=== PATIENT | male | born 1995 | race Caucasian/White ===

== ENCOUNTER 2018-10-02 09:47 | Emergency (ER) | payer OTHER ==
[~2018-10-02] VITALS: Ht 177.8 cm; Wt 92.5 kg
[2018-10-02 09:53] VITALS: BP 134/66
--- NOTE | 2018-10-02 10:10 | NUR ---
C/O ABCESS ON LT SIDE OF HEAD X1 MONTH. PT REPORTS PAIN AT 1/10 THAT INCREASES WITH WEARING HELMET. - N/V/D. PT RECEIVED ABX FROM PCP, WAS TOLD TO GO TO URGENT CARE TO DRAIN ABCESS, BUT PT STATES LINE WAS TO LONG. . DENIES N/V/D; SKIN IS PINK/WARM/DRY; AAOX4 WITH EVEN AND STEADY GAIT; LUNGS CLEAR BL; HR EVEN AND REGULAR; PT DENIES ANY FEVER, CP, SOB, OR COUGH AT THIS TIME; PATIENT STATES PAIN OF 1/10 AT THIS TIME; VSS; PATIENT POSITIONED FOR COMFORT; HOB ELEVATED; BEDRAILS UP X2; BED DOWN. ER MD MADE AWARE OF PT STATUS.
[2018-10-02] MEDS ORDERED: LIDOCAINE 1% 500 MG/50 ML VIAL INJ SCH (11:05)
[2018-10-02] MEDS ORDERED: LIDOCAINE MPF 1% 5mL VIAL ONE (11:28)
[2018-10-02 12:12] VITALS: BP 134/66
--- NOTE | 2018-10-02 12:12 | NUR ---
Patient discharged with v/s stable. Written and verbal after care instructions given and explained. Patient verbalized understanding. Ambulatory with steady gait. All questions addressed prior to discharge. Advised to follow up with PMD.
[2018-10-02] MEDS ORDERED: BACITRACIN OINT 500 UNITS/GM PKT TP ONE (12:16)
== END 2018-10-02 12:12 | disposition home or self-care (01) ==
LOC: MED 09:47
DX: L72.3 Sebaceous cyst (principal); R03.0 Elevated blood-pressure reading, without diagnosis of hypertension
CPT/HCPCS: 10060; 99283; J2001

== ENCOUNTER 2024-01-29 12:58 | Emergency (ER) | payer OTHER ==
[~2024-01-29] VITALS: Ht 177.8 cm; Wt 127.0 kg
[2024-01-29 13:02] VITALS: BP 143/84; PULSE 72; RESP 18; TEMP 98.2; O2SAT 97
[2024-01-29 13:39] LABS: BASOPHILS # (AUTO) 0.1 K/uL (0.00-0.22); BASOPHILS % (AUTO) 0.6 % (0.0-2.0); EOSINOPHILS # (AUTO) 0.3 K/uL (0-0.4); EOSINOPHILS % (AUTO) 2.3 % (0.0-4.0); HEMATOCRIT 48.1 % (36-52); HEMOGLOBIN 16.2 g/dL (12.0-18.0); LYMPHOCYTES # (AUTO) 2.8 K/uL (2.0-11.5); LYMPHOCYTES % (AUTO) 25.1 % (20.5-51.1); MEAN CORPUSCULAR HEMOGLOBIN 30 pg (27-31); MEAN CORPUSCULAR HGB CONC 34 g/dL (33-37); MEAN CORPUSCULAR VOLUME 87.5 fL (80-94); MONOCYTES # (AUTO) 0.7 K/uL (0.8-1.0); MONOCYTES % (AUTO) 6.1 % (1.7-9.3); NEUTROPHILS # (AUTO) 7.5 K/uL (1.8-7.7); NEUTROPHILS % (AUTO) 65.9 % (42.2-75.2); PLATELET COUNT (AUTO) 235 K/uL (140-450); RED BLOOD CELL COUNT(AUTO) 5.49 MIL/uL (4.20-6.10); WHITE BLOOD COUNT (AUTO) 11.3 K/uL (4.8-10.8)
[2024-01-29] MEDS: IBUPROFEN 800 MG TAB PO ONE (13:47)
[2024-01-29] MEDS: METOCLOPRAMIDE 10 MG TAB PO ONE (13:48)
[2024-01-29 13:55] LABS: ALBUMIN 4.2 g/dL (3.4-5.0); ANION GAP 12.4 (8-16); CALCIUM 9.5 mg/dL (8.5-10.1); CARBON DIOXIDE 27.3 mmol/L (21-32); POTASSIUM 3.7 mmol/L (3.5-5.1); TOTAL BILIRUBIN 0.6 mg/dL (0.0-1.0)
[2024-01-29] MEDS ORDERED: ONDA-188 PO (14:15)
== END 2024-01-29 14:22 | disposition home or self-care (01) ==
LOC: MED 12:58
DX: R51.9 Headache, unspecified (principal); R42 Dizziness and giddiness; R03.0 Elevated blood-pressure reading, without diagnosis of hypertension; Z20.822 Contact with and (suspected) exposure to COVID-19; Z79.899 Other long term (current) drug therapy
CPT/HCPCS: 36415; 80053; 85025; 87426; 99284; J8597; Q0163